=== PATIENT | female | born 1960 | race Caucasian/White ===

== ENCOUNTER 2016-12-07 11:26 | Emergency (ER) | payer SELFPAY ==
[2016-12-07 12:34] LABS: HEMOGLOBIN 13.9 gm/dl (12.3-15.3); RED BLOOD COUNT 4.66 M/UL (4.00-5.10); WHITE BLOOD COUNT 9.6 K/UL (4.5-11.0)
[2016-12-07 13:08] LABS: BUN/CREATININE RATIO 18 (0-10)
== END 2016-12-07 15:48 | disposition home or self-care (01) ==
LOC: ER1 11:26
PROVIDERS: Emergency Medicine
DX: R10.9 Unspecified abdominal pain (principal); K59.00 Constipation, unspecified; K56.41 Fecal impaction; I10 Essential (primary) hypertension; E07.9 Disorder of thyroid, unspecified; Z79.899 Other long term (current) drug therapy; Z90.49 Acquired absence of other specified parts of digestive tract; Z90.710 Acquired absence of both cervix and uterus
CPT/HCPCS: 36415; 74022; 80053; 82550; 82553; 83605; 83690; 83874; 84484; 85025; 93005; 96374; 96375; 99284; J2270; J2405; J7050; Q9962

== ENCOUNTER → 2022-04-14 | Outpatient (CLI) | payer OTHER | LOC: KOH-I 15:46 | DX: D44.0 Neoplasm of uncertain behavior of thyroid gland (principal); R22.1 Localized swelling, mass and lump, neck; E04.2 Nontoxic multinodular goiter | CPT/HCPCS: 76536 ==